=== PATIENT | male | born 1960 | race African-American/Black ===

== ENCOUNTER 2018-08-26 07:29 | Emergency (ER) | payer SELFPAY ==
[~2018-08-26] VITALS: Ht 175.3 cm; Wt 121.1 kg
[2018-08-26] MEDS ORDERED: KETOROLAC TROMETH 60MG/2ML VIAL IM ONE (09:15)
[2018-08-26 09:34] VITALS: BP 152/112
[2018-08-26] MEDS ORDERED: cloNIDine HCL 0.1 MG TAB PO ONE (09:45)
== END 2018-08-26 11:04 | disposition home or self-care (01) ==
LOC: ER 07:29
DX: S83.92XA Sprain of unspecified site of left knee, initial encounter (principal); I10 Essential (primary) hypertension; X50.1XXA Overexertion from prolonged static or awkward postures, initial encounter; Y93.89 Activity, other specified; Y99.8 Other external cause status; Y92.89 Other specified places as the place of occurrence of the external cause
CPT/HCPCS: 73562; 96372; 99283; J1885

== ENCOUNTER 2018-11-05 07:56 | Emergency (ER) | payer OTHER ==
[~2018-11-05] VITALS: Ht 175.3 cm; Wt 118.4 kg
[2018-11-05 08:20] VITALS: BP 129/96
[2018-11-05] MEDS ORDERED: KETOROLAC TROMETH 60MG/2ML VIAL IM ONE (09:15)
== END 2018-11-05 09:46 | disposition home or self-care (01) ==
LOC: ER 07:56
DX: M54.2 Cervicalgia (principal); M62.830 Muscle spasm of back; Z91.041 Radiographic dye allergy status
CPT/HCPCS: 72040; 96372; 99283; J1885; J7030

== ENCOUNTER 2018-11-20 08:13 | Emergency (ER) | payer OTHER ==
[~2018-11-20] VITALS: Ht 175.3 cm; Wt 117.9 kg
[2018-11-20 08:35] VITALS: BP 152/100
[2018-11-20] MEDS ORDERED: KETOROLAC TROMETH 60MG/2ML VIAL IM ONE (09:30)
== END 2018-11-20 09:36 | disposition home or self-care (01) ==
LOC: ER 08:13
DX: M17.11 Unilateral primary osteoarthritis, right knee (principal)
CPT/HCPCS: 73562; 96372; 99283; J1885

== ENCOUNTER 2019-05-21 14:26 | Emergency (ER) | payer OTHER ==
[~2019-05-21] VITALS: Ht 177.8 cm; Wt 122.5 kg
[2019-05-21 14:34] VITALS: BP 150/116
[2019-05-21 15:35] LABS: Basophils # (auto) 0 uL; Basophils % (auto) 0.6 % (0.0-2.0); Eosinophils # (auto) 0 uL; Eosinophils % (auto) 0.5 % (0.0-7.0); Hematocrit 48.6 % (41.0-53.0); Hemoglobin 16.3 g/dL (13.5-17.5); Lymphocytes # (auto) 1.6 uL; Lymphocytes % (auto) 23.4 % (10.0-50.0); Mean Corpuscular Hemoglobin 31.1 pg (28.0-32.0); Mean Corpuscular Hgb Conc. 33.5 g/dL (32.0-36.0); Mean Corpuscular Volume 92.9 fL (80.0-100.0); Monocytes # (auto) 0.6 uL; Monocytes % (auto) 8.1 % (0.0-12.0); Neutrophils # (auto) 4.6 uL; Neutrophils % (auto) 67.4 % (37.0-80.0); Nucleated Red Blood Cells % 0.2 %; Platelet Count (auto) 298 10^3/uL (140-450); Red Blood Cells 5.24 10^6/uL (4.5-5.90); Red Cell Distribution Width 13.5 % (11.8-14.3); White Blood Cell 6.9 10^3/uL (4.4-10.8)
[2019-05-21 15:52] LABS: Albumin 3.7 g/dL (3.4-5.0); Anion Gap 8 (5-15); BUN/Creatinine Ratio 12.7; Blood Urea Nitrogen 17 mg/dL (7-18); Calcium 8.6 mg/dL (8.5-10.1); Carbon Dioxide 25 mmol/L (21-32); Chloride 105 mmol/L (98-107); GFR African American 70 mL/min; GFR Non-African American 58 mL/min; Glucose 111 mg/dL (74-106); Magnesium 2.4 mg/dL (1.6-2.6); Potassium 4.3 mmol/L (3.5-5.1); Sodium 138 mmol/L (136-145)
[2019-05-21 16:00] LABS: Alanine Aminotransferase 28 U/L (16-61); Alkaline Phosphatase 66 U/L (45-117); Aspartate Aminotransferase 32 U/L (15-37); Bilirubin, Total 0.7 mg/dL (0.2-1.0); Total Protein 7.5 g/dL (6.4-8.2)
[2019-05-21] MEDS ORDERED: cloNIDine HCL 0.1 MG TAB PO ONE (16:45)
[2019-05-21] MEDS ORDERED: HCTZ 25 MG TAB ONE (22:12)
[2019-05-21] MEDS ORDERED: hydrALAZINE HCL 25 MG TAB PO ONE (22:30)
== END 2019-05-21 22:00 | disposition home or self-care (01) ==
LOC: ER 14:26 → EDBD 14:26 → ER 21:53
DX: I16.0 Hypertensive urgency (principal); M10.9 Gout, unspecified; I10 Essential (primary) hypertension; Z91.041 Radiographic dye allergy status
CPT/HCPCS: 36415; 80053; 83735; 83880; 84484; 85025; 93005